=== PATIENT | male | born 1950 | race Caucasian/White ===

== ENCOUNTER 2016-11-05 18:30 | Inpatient (IN) | payer OTHER ==
[~2016-11-05] VITALS: Ht 172.7 cm; Wt 61.1 kg
[2016-11-05] VITALS (9 sets, daily range): BP systolic 126–141; BP diastolic 64–92
--- NOTE | ~2016-11-05 | HC ---
[facility] [place] [address] CONSULTATION Name: TIARA LIMA Room #: 217-P [facility] IN M.R.#: [id number] Admission: 11/05/16 Attend Phys: Akash Choi MD Discharge: 11/11/16 Date of : 54 Report #: [id number] THIS REPORT FOR: //name// CC: Tomy Dialothy Sandy Choi DATE OF SERVICE: 11/07/2016 PERSONAL PHYSICIAN: Dr. Marks. CHIEF COMPLAINT: Multiple ulcerations. HISTORY OF PRESENT ILLNESS: This is a 66-year-old white male who has end-stage renal disease on hemodialysis as well as significant peripheral vascular disease who has most recently been at [facility] for rehabilitation and wound care. The patient unfortunately had cardiac arrest last evening and was resuscitated. I have been asked to assist in the care, I followed the patient for his wounds that he has at this time. The patient has ischemic wounds on his left hand and multiple digits as well as on his left above the knee amputation stump and his coccyx, left buttock and scrotal regions. Dr. Lozano has been taking care of these wounds well at [facility]. The patient himself is somewhat disoriented in the ICU, he is unable to give much history at this time. There was a left buttock ulceration, which is 2.0 x 1.0 x 0.1 cm, which is unstageable as well. PAST MEDICAL HISTORY: Significant for hypertension, end-stage renal disease, bilateral [id number] amputations, ischemic injuries to the left hand, insulin-dependent diabetes, peripheral vascular disease. CURRENT MEDICATIONS: Are multiple including Coumadin. I have reviewed the patient's medication list. DRUG ALLERGIES: CONTRAST DYE AND LISINOPRIL. SOCIAL HISTORY: At this time, it is unclear because patient's mentation whether he has a history of smoking or alcohol use, was transferred from [facility]. FAMILY HISTORY AND REVIEW OF SYSTEMS: Unobtainable because of the patient's mental status. PHYSICAL EXAMINATION: VITAL SIGNS: Stable. The patient is afebrile. [address] [address] CONSULTATION Name: TIARA LIMA Room #: 217-P DIS IN M.R.#: [id number] Admission: 11/05/16 Attend Phys: Akash Choi MD Discharge: 11/11/16 Date of : 54 Report #: [id number] GENERAL: This is an alert and oriented x 1 person, but not to place or time, white male who appears much older than his stated age. HEENT: Normocephalic, atraumatic. Mucous membranes are dry. Pupils are round. Sclerae are white. NECK: Without JVD or masses. LUNGS: Slightly diminished breath sounds heard throughout. HEART: Regular, without murmur. ABDOMEN: Soft, nontender. EXTREMITIES: The patient has on the left hand multiple ischemic, dry, mummified digits, specifically on digits 2, 3 and 4 without signs of open ulcerations. On the left, AKA stump there is an eschar noted on low lateral aspect of the surgical incision without signs of dehiscence ,there is no drainage. The eschar is dry and intact. The right AKA is intact. Evaluation of the coccyx reveals an ulceration, which is unstageable at this time with slough measuring 1.5 x 1.5 x 0.5 cm. There is minimal serosanguineous drainage without odor. Nan ulcer is otherwise intact without signs of cellulitis. On the base of the scrotum is a dry and intact eschar which measures 1.0 x 0.5 x 0.1 cm. There are no signs of infection or cellulitis. It is however, exquisitely tender to palpation. NEUROLOGIC: Cranial nerves 2-12 are grossly intact. Motor and sensory grossly intact. LABORATORY DATA: White count 10.8, hemoglobin 10.1. Albumin is markedly low at 1.7. IMPRESSION: 1. Multiple ischemic digits on the left hand -- overall stable. 2. Unstageable decubitus ulcer, coccygeal region. 3. Unstageable decubitus ulcer, scrotum with dry and intact eschar. 4. Left above knee amputation surgical wound with eschar, but no signs of dehiscence. 5. Unstageable left buttock ulceration. 6. Status post cardiopulmonary arrest. 7. Generalized debility. 8. Severe protein calorie malnutrition with albumin of 1.7. PLAN: At this time, on the left digits, we will paint them with Betadine daily. The patient already has an appointment to see the plastic surgeon in the next several days for evaluation of possible amputation. We will use Betadine to the scrotum as well twice daily. We will put the patient on low air loss mattress, and having turned every 2 hours. We will use Optifoam silver dressing to the coccygeal and buttock ulceration to be changed every other day. On the left above the knee amputation surgical wound we will use Betadine daily. We will [address] [address] CONSULTATION Name: TIARA LIMA Room #: 217-P DIS IN M.R.#: [id number] Admission: 11/05/16 Attend Phys: Akash Choi MD Discharge: 11/11/16 Date of : 54 Report #: [id number] attempt to try to maximize the patient's protein supplementation for healing. I appreciate the ability to consult. We will continue to follow the patient. <ELECTRONICALLY SIGNED> By: Mook Mays MD 11/19/16 0826 1321 0233 Mook Mays MD /nt
--- NOTE | ~2016-11-05 | EKG ---
[place] [address] [facility] [place] [address] ELECTROCARDIOGRAM REPORT Name: TIARA LIMA Room #: 236-P ADM IN M.R.#: [id number] Admission: 11/05/16 Attend Phys: Akash Choi MD Discharge: Date of : 54 Report #: [id number] THIS REPORT FOR: //name// [facility] ED Test Date: 2016-11-05 Test Time: 19:42:08 Pat Name: TIARA LIMA Department: Room: 236 Gender: M [place] [employer] Installer: BILL : 1950 Requested By: Samm Rosales Order Number: [id number] MD: Aureliano Moss Measurements Intervals Baker Rate: 84 P: 157 SD: 162 QRS: 149 QRSD: 218 T: 48 QT: 452 QTc: 535 Interpretive Statements Sinus or ectopic atrial rhythm Paired ventricular premature complexes RBBB and LPFB No previous ECG available for comparison Electronically Signed On 11-06-2016 8:23:18 CDT by Aureliano Moss [email or web address] <ELECTRONICALLY SIGNED> By: Aureliano Moss MD, [facility] 11/06/16 08 41 41 Aureliano Moss MD, FACC /EPI
--- NOTE | ~2016-11-05 | HC ---
[facility] [place] [address] CONSULTATION Name: TIARA LIMA Room #: 236-P ADM IN M.R.#: [id number] Admission: 11/05/16 Attend Phys: Akash Choi MD Discharge: Date of : 54 Report #: [id number] THIS REPORT FOR: //name// CC: Tomy Choi DATE OF SERVICE: 11/07/2016 We were asked by Dr. Choi to see the patient. HISTORY OF PRESENT ILLNESS: The patient is a 66-year-old admitted on 11/05. The patient was witnessed arrest in the shelter. He were resuscitated and brought to the hospital. Since admission, patient has been seen by Cardiology, Renal, Pulmonary and the hospitalists. The patient has had for at least 4 months problems with ischemic digits in the left hand. It began with the middle digit chip and extended to involve the index and ring fingers with some discoloration of the palpable thumb as well. No particular antecedent event associated with this. This does cause him pain. The patient has a history of peripheral vascular disease and has had bilateral lower extremity amputations and bilateral above-knee amputations. There is a history of smoking and diabetes mellitus. The patient's states that the patient's vascular surgeon has deferred treating the digits and an appointment exists for the patient to see a hand surgeon in [place]. PAST MEDICAL HISTORY: As mentioned, in addition to the current cardiac problem, diabetes mellitus, hypertension and hypercholesterolemia. SOCIAL HISTORY: The patient was brought from [facility]. Previously, the patient was at [place]. Prior to that, he was at an [facility], but apparently he lives in [place] with his normally. It is not clear to me why the patient is in shelter in the first place. MEDICATIONS: NovoLog, Levemir, Coumadin, sulfasalazine, [place], levothyroxine, atorvastatin, Flomax, amiodarone, vitamins and Celexa. ALLERGIES: LISINOPRIL AND CONTRAST DYE. REVIEW OF SYSTEMS: The patient does respond to questions, but only in a limited way. does most of the talking, although she states the is able to talk. The cannot give me much information, however. Review of systems as such is as available from the chart. [address] [address] CONSULTATION Name: TIARA LIMA Room #: 236-P [facility] IN M.R.#: [id number] Admission: 11/05/16 Attend Phys: Akash Choi MD Discharge: Date of : 54 Report #: [id number] IMPRESSION: Limited exam of the upper extremity due to the fact that the patient is on hemodialysis and this is entering the sterile portion of the procedure. However when I examined the patient, I could not feel brachial, radial or ulnar pulses. The upper extremity is pallid. He does have motion of the upper extremity and dry gangrene of the second, third and fourth digits with some changes in the pulp of the first and fifth digits. There is no obvious infection. It does not appeared to be weeping or cellulitic at all. This is clearly a chronic problem. I am not sure that I have a good solution for this. To my knowledge, there has been no artery work done on the upper extremities such as dialysis catheter. Current dialysis access is through venous access in the left clavicular area, and prior to that patient was on peritoneal dialysis (patient has been on dialysis for 2 years). If an aggressive approach is desired, then the patient will need some sort of formal study, be it a CT angiogram of the cervicocephalic and upper extremity vessels or arteriogram. At this point, I think it is unlikely that we can open any vessel of significance, but without some sort of anatomic study, this is purely a gas. Clearly there is distal artery ischemia and how far proximal and how chronic this is is a question binh. Currently the patient is dialyzed, which removes the risk of dye exposure, and he appears to be an end-stage renal patient. I doubt simple amputation will heal without some sort of revascularization and I would not attempt it. The easiest alternative of course is to allow the digits to auto amputate and just to have orthopedic surgery nibble off the mummified fingertips when that is possible. I think any incision through viable tissue is at risk of nonhealing. Thank you for the consult. <ELECTRONICALLY SIGNED> By: Tariq Kelly MD 11/08/16 1117 1542 2248 Tariq Kelly MD /nt
--- NOTE | ~2016-11-05 | 2DMMODE ---
[facility] [address] [place] [address] 2 D/M-MODE ECHOCARDIOGRAM Name: TIARA LIMA Room #: 236-P ADM IN M.R.#: [id number] Admission: 11/05/16 Attend Phys: Prabhakar Shelton Discharge: Date of : 54 Date of Service: 11/06/16 1307 Report #: [id number] THIS REPORT FOR: //name// APPROVED REPORT Study performed: 11/06/2016 10:59:36 EXAM: Comprehensive 2D, Doppler, and color-flow Echocardiogram Patient Location: Bedside Room #: 236 Blood Pressure: 95/58 mmHg HR: 79 bpm Other Information Study Quality: Adequate Indications Multiple ventricular arrhythmias, post code. Hx: DM, HTN, HLP, bilateral AKA. 2D Dimensions RVDd: 43.31 mm LVEF(%): 48.36 (>50%) IVSd: 12.43 (7-11mm) LVOT Diam: 20.17 (18-24mm) LVDd: 54.01 mm PWd: 14.13 (7-11mm) Ascending Ao: 30.82 (22-36mm) LVDs: 40.71 (25-40mm) Aortic Root: 34.60 mm Rhodes's LVEF: 48.36 % Volumes Left Atrial Volume (Systole) Single Plane 4CH: 47.87 mL Single Plane 2CH: 73.00 mL Aortic Valve AoV Peak Naveed.: 2.80 m/s AO Peak Gr.: 31.46 mmHg LVOT Max P.39 mmHg AO Mean Gr.: 16.83 mmHg LVOT Max V: 1.16 m/s AO V2 VTI: 55.75 cm Mitral Valve E/A Ratio: 1.4 [facility] [address] [place] [address] 2 D/M-MODE ECHOCARDIOGRAM Name: TIARA LIMA Room #: 236-P [facility] IN M.R.#: [id number] Admission: 11/05/16 Attend Phys: Prabhakar Shelton Discharge: Date of : 54 Date of Service: 11/06/16 1307 Report #: [id number] MV Decel. Time: 180.71 ms MV E Max Naveed.: 1.44 m/s MV A Naveed.: 1.01 m/s MV PHT: 52.41 ms Pulmonary Valve PV Peak Naveed.: 1.18 m/s PV Peak Gr.: 5.56 mmHg Pulmonary Vein P Vein S: 26.6 m/s P Vein D: 57.1 m/s Tricuspid Valve TR Peak Naveed.: 3.76 m/s RAP Estimate: 5.00 mmHg TR Peak Gr.: 56.66 mmHg RVSP: 62.00 mmHg Left Ventricle The left ventricle is normal size. Akinesis involving anterolateral, inferolateral, and apical arnold. Mild concentric left ventricular hypertrophy. Left ventricular systolic function is moderate to severely decreased. LVEF is 30%. Grade II - pseudonormal filling dynamics. Right Ventricle The right ventricle is normal size. Right ventricle function appears low normal. Atria Left atrium is dilated. Right atrium is dilated. Aortic Valve Aortic valve is moderately thickened and calcified. Trace aortic regurgitation. Moderate aortic stenosis. Valve area by continuity equation is 1.3cm2. Mitral Valve Mitral valve leaflets are mildly thickened. Mild to moderate mitral annular calcification. Mild mitral regurgitation. No evidence of mitral valve stenosis. Tricuspid Valve The tricuspid valve is normal in structure. There is moderate tricuspid regurgitation. The right atrial pressure is estimated at 5 mmHg. There is moderate pulmonary hypertension. Estimated PAP is 62mmHg. [address] [address] 2 D/M-MODE ECHOCARDIOGRAM Name: TIARA LIMA Room #: 236-P [facility] IN M.R.#: [id number] Admission: 11/05/16 Attend Phys: Prabhakar Shelton Discharge: Date of : 54 Date of Service: 11/06/16 1307 Report #: [id number] Pulmonic Valve The pulmonary valve is normal in structure. Trace pulmonic regurgitation. Great Vessels The aortic root is normal in size. The ascending aorta is normal in size. IVC is normal in size and collapses >50% with inspiration. Pericardium There is no pericardial effusion. <Conclusion> Left ventricular systolic function is moderate to severely decreased. LVEF is 30%. Akinesis involving anterolateral, inferolateral, and apical arnold. Left atrium is dilated. Aortic valve is moderately thickened and calcified. Trace aortic regurgitation. Mild-moderate aortic stenosis. Valve area by continuity equation is 1.3cm2. Mitral valve leaflets are mildly thickened. Mild mitral regurgitation. There is moderate pulmonary hypertension. Estimated PAP is 60 mmHg. There is no pericardial effusion. <ELECTRONICALLY SIGNED> By: Aureliano Moss MD, FACC 11/06/16 1307 1307 130 Aureliano Moss MD, FACC /INF
--- NOTE | ~2016-11-05 | DEA ---
[facility] [place] [address] SUMMARY Name: TIARA LIMA Room #: 217-P [facility] IN M.R.#: [id number] Admission: 11/05/16 Attend Phys: Akash Choi MD Discharge: 11/11/16 Date of : 54 Report #: [id number] THIS REPORT FOR: //name// CC: Tomy Choi DATE OF SERVICE: 11/11/2016 DATE: 11/11/2016. HISTORY OF PRESENT ILLNESS: The patient is a 66-year-old man with very complicated past medical history, including diabetes mellitus type 1, end-stage renal disease, peripheral vascular disease, status post bilateral lower extremity AKA, and left fingers gangrene. HOSPITAL COURSE: The patient was admitted to the hospital after he had a cardiac arrest at the [facility] where he resides. Please refer to admission H and P for details. HOSPITALIZATION COURSE: The patient was hospitalized here for cardiac arrest. The patient had multiple episodes of V Fib and V tach, and required CPR as well as defibrillations. The patient was treated in the ICU. The patient regained spontaneous circulation, and he recovered. He also had end-stage renal disease, and he was continued on hemodialysis. Diabetes ketoacidosis was treated with insulin drip, that has resolved. The patient's condition stabilized, but overall, his condition remained very guarded. Earlier this morning, I was notified that the patient developed cardiac arrest again, and he was coded. Briefly in the record, the patient regained spontaneous circulation, but then he developed cardiac arrest again. When I arrived, code was already run by hospitalist. ACLS protocol was followed. The patient was in PEA, and then he developed asystole. After 70 minutes into the code, the patient did not regain spontaneous circulation. The patient was pronounced on 11/11/2016 in a.m. <ELECTRONICALLY SIGNED> By: Levi Herrera MD 11/17/16 1250 0909 1233 Levi Herrera MD /nt
--- NOTE | ~2016-11-05 | HC ---
[facility] [place] [address] CONSULTATION Name: TIARA LIMA Room #: 217-P ADM IN M.R.#: [id number] Admission: 11/05/16 Attend Phys: Akash Choi MD Discharge: Date of : 54 Report #: [id number] THIS REPORT FOR: //name// CC: Tomy Delgado HISTORY OF PRESENT ILLNESS: The patient is a 66-year-old male from [facility], who was found down. Apparently, had witnessed or nearly witnessed arrest and subsequently, EMS came in here with VT, asystole, PEA. Multiple rounds of ACLS and epinephrine and amiodarone boluses times 2 of 300 and then 150. Currently on a dopamine drip with some marginal hemodynamics. It looks like an accelerated junctional or sinus now at 70. Blood pressure is 100/60. He is awake, but disoriented. He thinks he is in [place]. He was not happy with the Wei catheter insertion, so he is responsive for that. He was crying to the ER physician he was ready to call the code when he has wake up and he did wake up. I have very limited information. Apparently, the may be on her way and her significant other. He is a long-standing diabetic with bilateral AKAs. MEDICATIONS: He is on NovoLog, Accu-Cheks, Levemir, Coumadin, sulfasalazine, [place], levothyroxine, atorvastatin 20, Flomax 0.4, amiodarone 200 p.o. q.12h., fish oil, vitamin D and Celexa. ALLERGIES: LISINOPRIL and CONTRAST DYE. PAST MEDICAL HISTORY: Obviously for diabetes, hypertension, hypercholesterolemia and bilateral AKAs and end-stage renal disease. SOCIAL HISTORY: Apparently lives at the [facility] or [facility]. He has a , we believe. I do not know about any current alcohol or tobacco. REVIEW OF SYSTEMS: Noncontributory. There is no knowledge of family history. PHYSICAL EXAMINATION: GENERAL: He is awake, currently on 10 mcg of dopamine. VITAL SIGNS: Blood pressure 100/76, pulse is 80s. HEENT: Eyes show no xanthelasmas. Pharynx, some dry mucous membranes. NECK: Shows upstroke slightly diminished. LUNGS: Prolonged, but clear anteriorly. CARDIAC EXAMINATION: S1, S2. Holosystolic murmur is noted. ABDOMEN: Slightly protuberant. EXTREMITIES: Reveal bilateral AKAs. SKIN: There are no obvious wounds. There are no ulcers. Stumps are well [address] [address] CONSULTATION Name: TIARA LIMA Room #: 217-P ADM IN M.R.#: [id number] Admission: 11/05/16 Attend Phys: Akash Choi MD Discharge: Date of : 54 Report #: [id number]. NEUROLOGIC: Appears to be nonfocal, not really purposeful, but he is awake, follows some simple commands. ASSESSMENT: 1. Status post code blue with asystole, PEA and VT. 2. History of diabetes. 3. Hypertension. 4. Hypercholesterolemia. 5. Sudden cardiac , as noted above. 6. End-stage renal disease. RECOMMENDATIONS AND PLAN: I do not see a definite current of injury. There are some ST abnormalities, depression anteriorly and left anterior fascicular block, right bundle. Serial enzymes, EKG, ICU. He is extubated. He was transiently intubated, O2. Pulmonary input for . Obviously, since he is neurologically now awake, I do not know if there is indication for any cooling blankets. We are awaiting lab. I do not know what the etiology of this arrest was, possibly electrolyte abnormality. He is apparently a dialysis patient. Lab is still pending. We will follow with you. I certainly think still guarded condition here. Also will be interested in talking to the family if he is in fact supposed to be full code. <ELECTRONICALLY SIGNED> By: Tomy Young MD, FACC 11/11/16 0921 [id number] Tomy Young MD, FACC /nt
--- NOTE | ~2016-11-05 | HC ---
[facility] [place] [address] CONSULTATION Name: TIARA LIMA Room #: 217-P [facility] IN M.R.#: [id number] Admission: 11/05/16 Attend Phys: Akash Choi MD Discharge: 11/11/16 Date of : 54 Report #: [id number] THIS REPORT FOR: //name// CC: Tomy Choi DATE OF SERVICE: 11/05/2016 REFERRING PROVIDER: LYNNETTE Bautista. REASON FOR CONSULTATION: Hypoxemic respiratory failure, small pneumothorax. HISTORY OF PRESENT ILLNESS: Our group was asked to see the patient in consultation while hospitalized at [facility]. He is a poor historian. Apparently, he has been around several facilities in the [facility] recently. Recently with bilateral ydxiz-wwc-wiqg amputation and severe peripheral vascular disease. Had some difficulty with dialysis at his current facility at [facility] and a new dialysis catheter placed yesterday, but may have had a poor , presented with multiple cardiac arrests in our emergency department, frequently requiring CPR. The patient subsequently extubated. He awakened after one of the last events and is now in the ICU on a nonrebreather mask. During CPR, however, noted some left rib fractures in the sternum as well as small left apical pneumothorax. The patient is noted to be profoundly hyperglycemic and is requiring an insulin drip. Further history difficult to obtain from the patient and scant records available to me at this time. ALLERGIES: CONTRAST DYE and LISINOPRIL. OUTPATIENT MEDICATIONS: Recently at [facility] include: 1. Tylenol. 2. Amiodarone. 3. Atorvastatin. 4. Cholecalciferol. 5. Celexa. 6. Fish oil. 7. Hydrocodone. 8. Levemir insulin. 9. Synthroid 0.15. 10. Renvela. 11. Flomax. 12. Warfarin. 13. Colace. [address] [address] CONSULTATION Name: TIARA LIMA Room #: 217-P [facility] IN M.R.#: [id number] Admission: 11/05/16 Attend Phys: Akash Chio MD Discharge: 11/11/16 Date of : 54 Report #: [id number] PAST MEDICAL HISTORY: Has included diabetes mellitus type 2, bilateral AKA, dialysis dependent, unclear why the amiodarone. SOCIAL HISTORY: As described in the HPI regarding multiple long term facilities recently. FAMILY HISTORY: Unobtainable from the patient at this time. REVIEW OF SYSTEMS: Otherwise, unobtainable other than he is having chest pain. PHYSICAL EXAMINATION: VITAL SIGNS: Afebrile. Pulse 90s, respiratory rate 18, blood pressure 131/59 and oxygen saturation 100% on nonrebreather mask. GENERAL: This is a thin, ill elderly male, in no distress. ENT: Clear oropharynx. NECK: Supple, no lymphadenopathy. LUNGS: Essentially clear. CHEST: Revealed crepitus over the left sternal rib costal margin. CARDIOVASCULAR: Heart is regular. No murmurs noted. ABDOMEN: Soft, nontender. No masses. EXTREMITIES: Reveal poor healing wounds over the distal AKA stumps. LABORATORY DATA: Chest x-ray, on repeat chest x-ray, no left pneumothorax is noted. White blood cell count 11,000, hemoglobin 10, hematocrit 35 and platelet count 246,000. Sodium is 134, potassium 5.7, chloride 97, bicarbonate 14, BUN 69, creatinine 6.9 and glucose 1041. ALT 500, AST 306. IMPRESSION: 1. Status post multiple cardiac arrests. 2. End-stage kidney disease, on hemodialysis. 3. Multiple electrolyte disturbances secondary to the above. 4. Left apical pneumothorax, not present in followup film. Previously called left pneumothorax likely skin fold. 5. Profound hyperglycemia. 6. Status post above-knee amputations. 7. Hypoxemic respiratory failure, likely can titrate down FiO2. 8. Lactic acidosis, likely secondary to recent cardiac arrest. SUGGESTIONS: 1. Wean FIO2. 2. Dialysis per nephrology. 3. Insulin drip. 4. Cardiology consultation. 5. Further recommendations to follow. [address] [address] CONSULTATION Name: TIARA LIMA Room #: 217-P [facility] IN M.R.#: [id number] Admission: 11/05/16 Attend Phys: Akash Choi MD Discharge: 11/11/16 Date of : 54 Report #: [id number] Thank you for requesting our suggestions. <ELECTRONICALLY SIGNED> By: Gerhard Madrigal MD 11/17/16 1254 2250 1235 Gerhard Madrigal MD /nt
--- NOTE | ~2016-11-05 | HC ---
[facility] [place] [address] [place] [address] CONSULTATION Name: TIARA LIMA Room #: 236-P ADM IN M.R.#: [id number] Admission: 11/05/16 Attend Phys: Akash Choi MD Discharge: Date of : 54 Report #: [id number] THIS REPORT FOR: //name// CC: Tomy Delgado DATE OF SERVICE: 11/05/2016 REASON FOR CONSULTATION: End-stage renal disease with multiple medical abnormalities and multiple ventricular arrhythmias, post-code. HISTORY OF PRESENT ILLNESS: This is a 66-year-old male who has undergone multiple recent medical events. These will all be outlined below. The majority of his current problem is that he was transferred just yesterday to [facility]. He had been at [facility] for a number of weeks for wound care. He was transferred yesterday. This afternoon, towards the evening, he had a cardiac arrest. EMS reports he had both v tach and v fib. He received multiple different defibrillations and cardioversions. He has had a recurrence of the same here in the emergency room and received additional defibrillation. He has returned to sinus rhythm. He has been put on some dopamine. He has received some IV fluids. He actually has a good blood pressure now and has a sinus rhythm, is awak and is able to talk and actually converse with me. Most of the history though was taken from his who is at the bedside. He currently is complaining of pain related to his chest compressions and cardioversions. He has mild dyspnea. He is on oxygen per mask. The patient has end-stage renal disease and has been a chronic dialysis patient for the past couple of years. He previously had been on peritoneal and was doing home cyclical peritoneal dialysis and was giving self-care for that. His tells me though that he has been in and out of the hospital for most of the past 6 months since April 2016. She denies that he had any peritonitis, but at some point his peritoneal catheter was nonfunctional. Apparently, it was just removed yesterday at [facility]. He also had a tunneled left internal jugular vein hemodialysis catheter in place, but it had been functioning poorly, so he also had an exchange of that tunneled left IJ catheter done yesterday at [facility]. He last dialyzed 2 days ago on 11/03/2016, but apparently that was for a poor dialysis with a poorly functioning dialysis catheter. He did not get dialysis today due to complications with his transfer to [facility]. Diabetes is the etiology of his end-stage renal disease. He has never had a dialysis graft or fistula placed. PAST MEDICAL HISTORY: Longstanding diabetes, eventually leading to the end-stage renal disease. He has severe vascular disease. He developed ischemic [facility] [address] [place] [address] CONSULTATION Name: TIARA LIMA Room #: 236-P ADM IN M.R.#: [id number] Admission: 11/05/16 Attend Phys: Akash Choi MD Discharge: Date of : 54 Report #: [id number] wounds on his toes and both feels and in spite of attempts with multiple different interventions, both of those progressively got worse. On 09/26/2016, he had bilateral rieff-erc-uaht amputations done at [facility]. He has also developed ischemic wounds on multiple fingers of his left hand that are still very painful. He had ischemic wound on scrotum and penis and those were receiving additional care at [facility], he also had decub on his sacrum. Apparently all of those wounds have improved and are showing signs of healing. His left hand is now better. He has had previous problems with atrial fibrillation and is chronically on some amiodarone. He has hyperlipidemia. He is on thyroid replacement. Chronically, on some anticoagulation with Coumadin. Reportedly in addition to his atrial fibrillation, he has other coronary artery disease. He had a heart catheterization done sometime in the last 6 months. Report per his is that he had no major vessel blockages, but it sounds like he has very small diabetic type vessels. MEDICATIONS: On admission include Levemir 22 units daily, NovoLog with meals, warfarin 2 mg daily, DuoNeb inhaler, hydrocodone for pain, levothyroxine 0.15 mg daily, atorvastatin 20 mg daily, tamsulosin 0.4 mg daily, amiodarone 200 mg b.i.d., fish oil, vitamin D3 1000 units daily, citalopram 10 mg daily, sevelamer 800 mg t.i.d. with meals, is a phosphate binder; several other p.r.n. medications. ALLERGIES: Listed to LISINOPRIL and to CONTRAST DYE, exact reactions are unknown.. FAMILY HISTORY: Unavailable at the present time. SOCIAL HISTORY: The patient is , lives in [place], [place]. Again, his and daughter are accompanying him at this time. He is retired/disabled. REVIEW OF SYSTEMS: Currently, he is having pain across his chest related to his defibrillations and compressions, says he feels mildly short of breath. Denies nausea or vomiting. He still voids some urine, has a Wei catheter in place. Has a lot of pain in his left hand, also numbness to peripheral touch. No fevers or chills, had been feeling much better prior to today. PHYSICAL EXAMINATION: GENERAL: Elderly, chronically ill-appearing male seen in the emergency room. He does awaken, make eye contact, then answer some questions and talk. VITAL SIGNS: Blood pressure 131/59, heart rate 93, respiratory rate 17, pulse ox is 100% on face mask. HEENT: Shows pupils are 3 mm reactive. Sclerae nonicteric. Oral mucosa is moist. NECK: Supple, without JVD, adenopathy or bruit. CHEST: Shows shallow respirations with some guarding due to his discomfort, [facility] [address] [place] [address] CONSULTATION Name: TIARA LIMA Room #: 236-P ADM IN M.R.#: [id number] Admission: 11/05/16 Attend Phys: Akash Choi MD Discharge: Date of : 54 Report #: [id number] clear bilaterally. HEART: Regular rate and rhythm. No murmur, no rub. ABDOMEN: Shows sites of removal of his left sided peritoneal catheter those looked like they have surgical skin glue in place. No drainage. Abdomen has bowel sounds present, soft, nontender. EXTREMITIES: Show bilateral krbzm-akv-nanw amputation, for the most part those incisions are intact. There is some erythema and a bit of scar on the lateral aspect of the left thigh incision. He has numerous ischemic digits on the left hand with dry gangrene. Right hand appears to be intact without similar ischemia. NEUROLOGIC: He is able to move all extremities. He is awake and responsive and again, able to converse. LABORATORY DATA: Sodium 134, potassium 5.7, chloride 97, bicarbonate 14, BUN 69, creatinine 6.9. Glucose on first check was 1041, on repeat it was 939, but that was still an hour and a half to two hours ago. AST 500, ALT 306, total bilirubin 0.6, calcium 7.0, magnesium 2.6, total protein 5.6, albumin 1.7 and lactate 8.4. Troponin 0.17. INR 1.4. White count 10.8; hemoglobin 10.1; hematocrit 35.0; platelets 246,000. Differential on the white count, 80 segs, 4 bands, 10 lymphs, 2 monos, 3 eosinophils. Urinalysis: Specific gravity 1.015, pH 5.5, 2+ protein, 3+ glucose, 3+ blood, 3-10 white cells. Blood gas; pH 7.17, pCO2 of 31, pO2 of 139, lactate 8.97. I reviewed his chest x-ray. It actually shows fairly good aeration to both lungs. There might be some very mild pulmonary vascular redistribution. He has a tunneled left internal jugular vein dialysis catheter in appropriate place. ASSESSMENT: 1. Post ventricular fibrillation and ventricular tachycardia arrest, now in sinus rhythm on amiodarone infusion, required 4 different episodes of cardioversion/defibrillation. He is in sinus at this time. Blood pressure is actually holding fairly well at the present time. 2. End-stage renal disease. He last dialyzed 48 hours ago and got poor dialysis at that time. Potassium is up. He is very acidotic. Due to his extreme instability, we will get him on some slow low-efficiency dialysis and we will plan on a 12-hour run. We will dialyze him with a 3 potassium dialysate, although potassium will correct more readily with correction of his hyperglycemia. 3. Diabetes mellitus with severe hyperglycemia. aggressive insulin drip during this stay and he has been started on that. 4. Hyperkalemia, again related to his hyperglycemia as much as anything else. 5. Acidosis, mixed with lactic acidosis and no doubt some acidosis related to his renal failure. Correction of those should help him be more stable in addition. 6. Recent bilateral xolfe-abm-hrzv amputations, generally healing well. 7. Multiple ischemic wounds including left fingers, penis and scrotum. [facility] [address] [place] [address] CONSULTATION Name: TIARA LIMA Room #: 236-P ADM IN M.R.#: [id number] Admission: 11/05/16 Attend Phys: Akash Choi MD Discharge: Date of : 54 Report #: [id number] genital wounds are reported to be healing. The left hand fingers remained very ischemic and necrotic. 8. Anemia of end-stage renal disease. PLAN: 1. We will run him on some continuous therapy tonight with SLED 12 hours on a 3 potassium dialysate. This will help correct his acidosis and his potassium. We will use his new tunneled catheter. 2. Recheck labs in the morning. 3. I discussed with Dr. Young who has seen the patient, will get an echocardiogram. 4. We will follow along closely in the care of this critically ill patient. <ELECTRONICALLY SIGNED> By: Donte Delgado MD 11/08/16 0837 2127 0707 Donte Delgado MD /nt
--- NOTE | ~2016-11-05 | EKG ---
[place] [address] [email or web address] [place] [address] ELECTROCARDIOGRAM REPORT Name: TIARA LIMA Room #: 236-P ADM IN M.R.#: [id number] Admission: 11/05/16 Attend Phys: Akash Choi MD Discharge: Date of : 54 Report #: [id number] THIS REPORT FOR: //name// [facility] ED Test Date: 2016-11-05 Test Time: 18:37:41 Pat Name: TIARA LIMA Department: Room: 236 Gender: M [employer] 1950 Requested By: Samm Rosales Order Number: [id number] MD: Aureliano Moss Measurements Intervals [place] Rate: 63 P: [place]: QRS: 153 QRSD: 213 T: 26 QT: 539 QTc: 552 Interpretive Statements Junctional rhythm RBBB and LPFB No previous ECG available for comparison Electronically Signed On 11-06-2016 8:22:51 CDT by Aureliano Moss [email or web address] <ELECTRONICALLY SIGNED> By: Aureliano Moss MD, [facility] 11/06/16 0822 1837 36 Aureliano Moss MD, FACC /EPI
[2016-11-05 18:43] LABS: ABG SAMPLE TYPE ARTERIAL; BE(vivo) -14.3 mmol/L (-2 to +3); HCO3 13.2 mmol/L (22.0-26.0); O2Hb 96.8 % (92.0-98.0); PCO2 37.1 mmHg (35.0-45.0); PO2 139.1 mmHg (80.0-100.0); sO2 98.1 % (92.0-98.0); tCO2 14.4 mmol/L (24.0-30.0)
[2016-11-05 18:44] LABS: LACTATE 8.97 mmol/L (0.5-2.0); STICK SITE R.BRACHIAL
[2016-11-05 19:09] LABS: HEMOGLOBIN 10.1 gm/dL (14.0-18.0); MCH 29.7 pg (26.0-34.0); MCHC 28.9 g/dL (28.0-37.0); MCV 102.8 fL (80.0-100.0); PLATELET COUNT 246 thou/uL (150-400); RBC 3.41 mil/uL (4.50-6.00); RDW 22.5 % (10.5-14.5); WBC 10.8 thou/uL (4.0-11.0)
[2016-11-05 19:10] LABS: ANION GAP 23 mmol/L (7-16); BUN 69 mg/dL (7-18); CHLORIDE 97 mmol/L (98-107); CO2 14 mmol/L (21-32); CREATININE 6.9 mg/dL (0.7-1.3); MANUAL DIFF YES; POTASSIUM 5.7 mmol/L (3.5-5.1); SODIUM 134 mmol/L (136-145)
[2016-11-05 19:13] LABS: APTT 33.2 Seconds (24.5-32.8); INR 1.4; PROTIME 14.3 Seconds (9.3-11.4)
[2016-11-05 19:30] LABS: GLUCOSE 1041 mg/dL (74-106)
[2016-11-05] MEDS ORDERED: LEVEMIR SUBQ (19:31)
[2016-11-05] MEDS ORDERED: NOVOLOG100 UNIT/1 SUBQ (19:31)
[2016-11-05] MEDS ORDERED: COUMADIN 2 MG TA2 M1 PO (19:32)
[2016-11-05] MEDS ORDERED: LEVOTHYROXINE 0.15MG PO (19:32)
[2016-11-05] MEDS ORDERED: DUONEB 2.5-0.5 M3 ML INH (19:32)
[2016-11-05] MEDS ORDERED: HYDROCODONE-APA1 TA1 PO (19:32)
[2016-11-05] MEDS ORDERED: FISH OIL 1,001000 M2 PO (19:33)
[2016-11-05] MEDS ORDERED: LIPITOR 20 MG T20 M1 PO (19:33)
[2016-11-05] MEDS ORDERED: FLOMAX0.4 MG PO (19:33)
[2016-11-05] MEDS ORDERED: SENNA8.6 MG PO (19:33)
[2016-11-05] MEDS ORDERED: PACERONE 200 M200 M1 PO (19:33)
[2016-11-05] MEDS ORDERED: VITAMIN D1000 UNI1 PO (19:34)
[2016-11-05] MEDS ORDERED: CELEXA10 MG PO (19:34)
[2016-11-05] MEDS ORDERED: RENVELA800 MG PO (19:34)
[2016-11-05] MEDS ORDERED: MILK OF MA2400 MG/10 PO (19:35)
[2016-11-05] MEDS ORDERED: TYLENOL325 MG PO (19:35)
[2016-11-05] MEDS ORDERED: CONSTULOSE10 GM/15 M PO (19:35)
[2016-11-05 19:36] LABS: SGOT 500 U/L (15-37); TOTAL BILIRUBIN 0.6 mg/dL (<0.1-1.0)
[2016-11-05 19:37] LABS: ALBUMIN 1.7 g/dL (3.4-5.0); ALKALINE PHOSPHATASE 166 U/L (46-116); MAGNESIUM 2.6 mg/dL (1.8-2.4); TROPONIN-I 0.08 ng/mL (<0.04-0.07)
[2016-11-05] MEDS ORDERED: [UNRECOGNIZED DRUG - OTHER] RECTAL (19:37)
[2016-11-05 19:38] LABS: CK-MB MASS 1.8 ng/mL (<0.5-3.6); SGPT 306 U/L (30-65); TOTAL PROTEIN 5.6 g/dL (6.4-8.2)
[2016-11-05 19:45] LABS: ABSOLUTE NEUTROPHILS 9.1 thou/uL (1.4-8.2); ANISOCYTOSIS 1+; TOTAL CELL COUNT 100
[2016-11-05 19:47] LABS: POLYCHROMASIA OCCASIONAL
[2016-11-05 20:05] LABS: URINE BILIRUBIN NEGATIVE (Negative); URINE BLOOD 3+ (Negative); URINE COLOR YELLOW; URINE GLUCOSE-RANDOM* 3+ (Negative); URINE KETONES NEGATIVE (Negative); URINE LEUKOCYTES-REFLEX NEGATIVE (Negative); URINE PROTEIN (DIPSTICK) 2+ (Negative); URINE SPECIFIC GRAVITY 1.015 (1.003-1.035); URINE UROBILINOGEN 0.2 E.U./dl (0.2-1.0)
[2016-11-05 20:25] LABS: NT-PRO BRAIN NAT PEPTIDE > 70000 pg/mL (<300)
[2016-11-05 20:32] LABS: CASTS None Seen /LPF (None Seen); CRYSTALS None Seen /LPF (None Seen); SQUAMOUS 0-3 Few /LPF (0-3); URINE RBC 3-10 Few /HPF (0-2); URINE WBC-REFLEX None Seen /HPF (0-5)
[2016-11-05 20:37] LABS: TROPONIN-I 0.17 ng/mL (<0.04-0.07)
[2016-11-05 22:53] LABS: ABG SAMPLE TYPE ARTERIAL; BE(vivo) -8.1 mmol/L (-2 to +3); HCO3 18.1 mmol/L (22.0-26.0); LACTATE 4.87 mmol/L (0.5-2.0); O2(CT) 16.7 mL/dL (15.0-23.0); O2Hb 98.2 % (92.0-98.0); PCO2 39.4 mmHg (35.0-45.0); PO2 183.3 mmHg (80.0-100.0); STICK SITE R.RADIAL; pH 7.279 (7.360-7.450); sO2 99.1 % (92.0-98.0); tCO2 19.3 mmol/L (24.0-30.0)
[2016-11-06] VITALS (98 sets, daily range): BP systolic 84–168; BP diastolic 46–133
[2016-11-06 06:01] LABS: HEMATOCRIT 32.1 % (42.0-52.0); HEMOGLOBIN 10.2 gm/dL (14.0-18.0); MCH 28.6 pg (26.0-34.0); MCHC 31.9 g/dL (28.0-37.0); RBC 3.58 mil/uL (4.50-6.00); RDW 21.5 % (10.5-14.5); WBC 16.2 thou/uL (4.0-11.0)
[2016-11-06 06:02] LABS: MCV 89.7 fL (80.0-100.0)
[2016-11-06 06:14] LABS: ALBUMIN 2.2 g/dL (3.4-5.0); CALCIUM 7.9 mg/dL (8.5-10.1); MAGNESIUM 1.7 mg/dL (1.8-2.4); PHOSPHORUS 1.6 mg/dL (2.5-4.9); TOTAL BILIRUBIN 1.1 mg/dL (<0.1-1.0); TOTAL PROTEIN 6.2 g/dL (6.4-8.2)
[2016-11-06 06:25] LABS: CREATININE 2.9 mg/dL (0.7-1.3); POTASSIUM 3.7 mmol/L (3.5-5.1)
[2016-11-06 09:21] LABS: ABG SAMPLE TYPE ARTERIAL; BE(vivo) 5.4 mmol/L (-2 to +3); HCO3 29.1 mmol/L (22.0-26.0); O2(CT) 14.6 mL/dL (15.0-23.0); O2Hb 97.8 % (92.0-98.0); PO2 119.5 mmHg (80.0-100.0); STICK SITE R.BRACHIAL; sO2 98.6 % (92.0-98.0); tCO2 30.3 mmol/L (24.0-30.0)
[2016-11-06 09:43] LABS: CHOLESTEROL 86 mg/dL (<200); HDL CHOLESTEROL 52 mg/dL (>40); LDL CHOLESTEROL 22 mg/dL (<100); TC:HDL 1.7 Ratio (Not establshd); TRIGLYCERIDE 61 mg/dL (<150); VLDL 12 mg/dL (<40)
[2016-11-07] VITALS (80 sets, daily range): BP systolic 77–145; BP diastolic 44–119
[2016-11-07 05:18] LABS: HEMATOCRIT 29.9 % (42.0-52.0); HEMOGLOBIN 9.6 gm/dL (14.0-18.0); MCV 90.6 fL (80.0-100.0); PLATELET COUNT 169 thou/uL (150-400); RDW 21.9 % (10.5-14.5); WBC 15.8 thou/uL (4.0-11.0)
[2016-11-07 05:33] LABS: ALBUMIN 1.9 g/dL (3.4-5.0); CALCIUM 7.5 mg/dL (8.5-10.1); CREATININE 2.8 mg/dL (0.7-1.3); MAGNESIUM 2.4 mg/dL (1.8-2.4); PHOSPHORUS 4.9 mg/dL (2.5-4.9); POTASSIUM 4.3 mmol/L (3.5-5.1); TOTAL BILIRUBIN 0.8 mg/dL (<0.1-1.0); TOTAL PROTEIN 5.6 g/dL (6.4-8.2)
[2016-11-07 05:54] LABS: MANUAL DIFF YES
[2016-11-07 08:31] LABS: ABSOLUTE NEUTROPHILS 14.5 thou/uL (1.4-8.2); ANISOCYTOSIS 2+; TOTAL CELL COUNT 100
[2016-11-08] VITALS (14 sets, daily range): BP systolic 115–147; BP diastolic 70–95
[2016-11-08 08:34] LABS: ALBUMIN 1.7 g/dL (3.4-5.0); CREATININE 2.1 mg/dL (0.7-1.3); PHOSPHORUS 3.3 mg/dL (2.5-4.9); POTASSIUM 4.8 mmol/L (3.5-5.1)
[2016-11-08 11:44] LABS: INR 1.2; PROTIME 12.9 Seconds (9.3-11.4)
[2016-11-09 04:27] VITALS: BP 151/94
[2016-11-09 07:35] VITALS: BP 131/78
[2016-11-09 11:50] VITALS: BP 140/78
[2016-11-09 16:50] VITALS: BP 118/60
[2016-11-09 19:09] VITALS: BP 125/75
[2016-11-10 04:00] VITALS: BP 109/64
[2016-11-10 05:02] LABS: HEMATOCRIT 27.2 % (42.0-52.0); HEMOGLOBIN 8.5 gm/dL (14.0-18.0); MCH 28.8 pg (26.0-34.0); MCHC 31.4 g/dL (28.0-37.0); MCV 91.6 fL (80.0-100.0); PLATELET COUNT 178 thou/uL (150-400); RBC 2.97 mil/uL (4.50-6.00); RDW 21.2 % (10.5-14.5); WBC 8.6 thou/uL (4.0-11.0)
[2016-11-10 05:16] LABS: MANUAL DIFF YES
[2016-11-10 05:17] LABS: CALCIUM 7.7 mg/dL (8.5-10.1); CREATININE 3.8 mg/dL (0.7-1.3)
[2016-11-10 08:23] LABS: ABSOLUTE NEUTROPHILS 7.8 thou/uL (1.4-8.2); TOTAL CELL COUNT 100
[2016-11-10 08:24] LABS: ANISOCYTOSIS 2+
[2016-11-10 08:35] VITALS: BP 102/61
[2016-11-10 09:33] LABS: INR 1.2; PROTIME 12.4 Seconds (9.3-11.4)
[2016-11-10 12:10] VITALS: BP 134/56
[2016-11-10 15:45] VITALS: BP 111/51
[2016-11-10 20:26] VITALS: BP 153/51
[2016-11-11 04:42] VITALS: BP 115/52
[2016-11-11 06:46] LABS: PLATELET COUNT 228 thou/uL (150-400); WBC 8.6 thou/uL (4.0-11.0)
[2016-11-11 06:47] LABS: HEMATOCRIT 31.4 % (42.0-52.0); MCH 28.7 pg (26.0-34.0); MCV 89.8 fL (80.0-100.0); RDW 21.2 % (10.5-14.5)
[2016-11-11 06:48] LABS: MANUAL DIFF YES
[2016-11-11 07:02] LABS: CALCIUM 6.9 mg/dL (8.5-10.1); POTASSIUM 4.7 mmol/L (3.5-5.1)
[2016-11-11 07:03] LABS: CREATININE 2.4 mg/dL (0.7-1.3)
[2016-11-11 07:04] LABS: INR 1.4
[2016-11-11 09:16] LABS: ABSOLUTE NEUTROPHILS 7.8 thou/uL (1.4-8.2); ANISOCYTOSIS 2+; TOTAL CELL COUNT 100
== END 2016-11-11 07:55 | DRG 441 ==
LOC: ER 18:30 → EROBS 19:55 → ICU 19:55 → 2N 11-08 12:02
PROVIDERS: Emergency Medicine; Hospitalist; Internal Medicine; Internal Medicine Endocrinology, Diabetes & Metabolism; Internal Medicine Nephrology; Internal Medicine Pulmonary Disease; Nurse Practitioner Adult Health; Nurse Practitioner Gerontology
PROC: 02HV33Z Insertion of Infusion Device into Superior Vena Cava, Percutaneous Approach (ICD-10-PCS; principal; 2016-11-07)
PROC: B548ZZA Ultrasonography of Superior Vena Cava, Guidance (ICD-10-PCS; principal; 2016-11-07)
DX: K72.00 Acute and subacute hepatic failure without coma (principal); J96.01 Acute respiratory failure with hypoxia; N18.6 End stage renal disease; S22.5XXA Flail chest, initial encounter for closed fracture; E13.10 Other specified diabetes mellitus with ketoacidosis without coma; E43 Unspecified severe protein-calorie malnutrition; I47.2 Ventricular tachycardia; I12.0 Hypertensive chronic kidney disease with stage 5 chronic kidney disease or end stage renal disease; J93.9 Pneumothorax, unspecified; E11.22 Type 2 diabetes mellitus with diabetic chronic kidney disease; I46.9 Cardiac arrest, cause unspecified; E11.51 Type 2 diabetes mellitus with diabetic peripheral angiopathy without gangrene; E83.42 Hypomagnesemia; E83.39 Other disorders of phosphorus metabolism; I25.5 Ischemic cardiomyopathy; I08.0 Rheumatic disorders of both mitral and aortic valves; I25.10 Atherosclerotic heart disease of native coronary artery without angina pectoris; I48.0 Paroxysmal atrial fibrillation; E11.65 Type 2 diabetes mellitus with hyperglycemia; E78.00 Pure hypercholesterolemia, unspecified; E87.5 Hyperkalemia; D63.1 Anemia in chronic kidney disease; L89.150 Pressure ulcer of sacral region, unstageable; L89.320 Pressure ulcer of left buttock, unstageable; L89.890 Pressure ulcer of other site, unstageable; I95.9 Hypotension, unspecified; K82.8 Other specified diseases of gallbladder; N28.1 Cyst of kidney, acquired; X58.XXXA Exposure to other specified factors, initial encounter; Z68.20 Body mass index [BMI] 20.0-20.9, adult; Z89.612 Acquired absence of left leg above knee; Z89.611 Acquired absence of right leg above knee; Z88.8 Allergy status to other drugs, medicaments and biological substances; Z91.041 Radiographic dye allergy status; Z99.2 Dependence on renal dialysis; Y93.89 Activity, other specified; Y92.89 Other specified places as the place of occurrence of the external cause; Y99.8 Other external cause status
CPT/HCPCS: 10078; 10081; 32100; 32110